=== PATIENT | male | born 1975 | race Caucasian/White ===

== ENCOUNTER → 2018-11-24 | Outpatient (CLI) | payer OTHER ==
[~2018-11-24] MED LIST: AZITHROMYCIN 2250 MG PO; NOHOMEMEDICATIONS; PROVENTIL IN
== END ==
LOC: MRI 09:35
DX: M19.072 Primary osteoarthritis, left ankle and foot (principal); M76.62 Achilles tendinitis, left leg; M72.2 Plantar fascial fibromatosis

== ENCOUNTER 2019-02-21 22:53 | Emergency (ER) | payer OTHER ==
[~2019-02-21] VITALS: Ht 182.9 cm; Wt 217.7 kg
[2019-02-21] MEDS ORDERED: METFORMIN HCL500 MG PO (23:15)
[2019-02-21] MEDS ORDERED: INVOKANA100 MG PO (23:16)
[2019-02-21] MEDS ORDERED: KLOR-CON 1010 MEQ PO (23:17)
[2019-02-21] MEDS ORDERED: NAPROSYN500 MG PO (23:17)
[2019-02-21] MEDS ORDERED: LEXAPRO20 MG PO (23:18)
[2019-02-21] MEDS ORDERED: LASIX 20 MG TAB20 MG PO (23:18)
[2019-02-22] MEDS ORDERED: NORCO 5-325 TA1 EACH PO (00:54)
[2019-02-22] MEDS ORDERED: PREDNISONE 20 M20 MG PO (00:54)
[2019-02-22 02:00] VITALS: BP 137/68
== END 2019-02-22 02:20 | disposition home or self-care (01) ==
LOC: ER 22:53
DX: M54.5 Low back pain (principal); E66.01 Morbid (severe) obesity due to excess calories; Z68.44 Body mass index [BMI] 60.0-69.9, adult; Z88.6 Allergy status to analgesic agent

== ENCOUNTER → 2019-03-02 | Outpatient (CLI) | payer OTHER ==
[~2019-03-02] MED LIST changes: +INVOKANA100 MG PO; +KLOR-CON 1010 MEQ PO; +LASIX 20 MG TAB20 MG PO; +LEXAPRO20 MG PO; +METFORMIN HCL500 MG PO; +NAPROSYN500 MG PO; +NORCO 5-325 TA1 EACH PO; +PREDNISONE 20 M20 MG PO
== END ==
LOC: MRI 14:01
DX: M51.37 Other intervertebral disc degeneration, lumbosacral region (principal); M51.27 Other intervertebral disc displacement, lumbosacral region; M51.35 Other intervertebral disc degeneration, thoracolumbar region; M48.061 Spinal stenosis, lumbar region without neurogenic claudication; M12.88 Other specific arthropathies, not elsewhere classified, other specified site